=== PATIENT | female | born 1985 | race Caucasian/White ===

== ENCOUNTER 2025-05-18 18:19 | Emergency (ER) | payer OTHER ==
[~2025-05-18] VITALS: Ht 170.2 cm; Wt 76.9 kg
--- NOTE | 2025-05-18 19:26 | DVH ---
EXAM: XY L TIB FIB XRAY REASON FOR EXAM: left tib fib pain TECHNIQUE: 2 views of the left tibia/fibula COMPARISON: None FINDINGS/IMPRESSION: No acute fracture, malalignment, or aggressive osseous lesion. No abnormal periosteal reaction or sclerosis. Soft tissues are normal.
--- NOTE | 2025-05-18 19:27 | DVH ---
CLINICAL INDICATION: left ankle pain TECHNIQUE: XY L ANKLE 3 VIEW Comparison: None FINDINGS/IMPRESSION: : There is no evidence of acute fracture or dislocation. There is an old avulsion fracture of the tip of the medial malleolus. Soft tissues are unremarkable.
[2025-05-18 19:52] VITALS: BP 163/93; PULSE 90; RESP 16; TEMP 99.1; O2SAT 98
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
== END 2025-05-18 20:01 | disposition home or self-care (01) ==
LOC: ER 18:19
DX: S93.402A Sprain of unspecified ligament of left ankle, initial encounter (principal); S80.12XA Contusion of left lower leg, initial encounter; G89.29 Other chronic pain; Z88.6 Allergy status to analgesic agent; X58.XXXA Exposure to other specified factors, initial encounter; Y93.89 Activity, other specified; Y92.89 Other specified places as the place of occurrence of the external cause; Y99.8 Other external cause status
CPT/HCPCS: 73590; 73610